=== PATIENT | female | born 1965 | race Caucasian/White ===

== ENCOUNTER 2019-02-08 08:36 | Emergency (ER) | payer OTHER ==
[~2019-02-08] VITALS: Ht 157.5 cm; Wt 62.0 kg
[2019-02-08] MEDS ORDERED: dexamethasone 4mg tablet PO ONE (08:55)
[2019-02-08] MEDS ORDERED: PRED20TA PO (09:05)
[2019-02-08] MEDS ORDERED: HYDR28CR14 TOP (09:05)
[2019-02-08 09:16] VITALS: BP 130/90
== END 2019-02-08 09:18 | disposition home or self-care (01) ==
LOC: ER 08:37
DX: R21 Rash and other nonspecific skin eruption (principal); Z88.0 Allergy status to penicillin
CPT/HCPCS: 99283; J8540

== ENCOUNTER 2019-02-23 12:11 | Emergency (ER) | payer OTHER ==
[~2019-02-23] VITALS: Ht 157.5 cm; Wt 62.7 kg
[~2019-02-23 12:11] MED LIST: HYDR28CR14 TOP; PRED20TA PO
[2019-02-23] MEDS ORDERED: traMADol 50MG tablet PO ONE (13:20)
[2019-02-23] MEDS ORDERED: TRAM50TA2 PO (13:21)
[2019-02-23] MEDS ORDERED: TETanus/Pertussis (Acell)/Diphther VAC/PF (Tdap-Adult) 0.5ml syringe IM ONE (13:30)
--- NOTE | 2019-02-23 13:54 | NUR ---
Dr Lechuga at bedside to evaluate splint to left lower leg, +cmst to left toes
[2019-02-23 14:01] VITALS: BP 120/69
== END 2019-02-23 14:03 | disposition home or self-care (01) ==
LOC: ER 12:11
DX: S92.352A Displaced fracture of fifth metatarsal bone, left foot, initial encounter for closed fracture (principal); I10 Essential (primary) hypertension; F17.200 Nicotine dependence, unspecified, uncomplicated; Z88.0 Allergy status to penicillin; Z79.899 Other long term (current) drug therapy; W10.8XXA Fall (on) (from) other stairs and steps, initial encounter; Y93.89 Activity, other specified; Y92.89 Other specified places as the place of occurrence of the external cause; Y99.8 Other external cause status
CPT/HCPCS: 29515; 73630; 90471; 90715; 99283